=== PATIENT | male | born 1955 | race Two or more races ===

== ENCOUNTER → 2024-11-25 07:51 | Outpatient (REF) | payer MEDICARE, OTHER, SELFPAY | LOC: RAD 07:51 | PROVIDERS: ATTENDING PHYSICIAN Internal Medicine Hematology & Oncology; FAMILY PHYSICIAN Family Medicine | DX: C18.9 Malignant neoplasm of colon, unspecified (principal); C61 Malignant neoplasm of prostate; D50.8 Other iron deficiency anemias | CPT/HCPCS: 71260; 74177; Q9967 ==

== ENCOUNTER → 2024-11-27 12:43 | Outpatient (REF) | payer MEDICARE, OTHER, SELFPAY | LOC: LAB 12:43 | PROVIDERS: ATTENDING PHYSICIAN Surgery | DX: D50.9 Iron deficiency anemia, unspecified (principal); K21.00 Gastro-esophageal reflux disease with esophagitis, without bleeding; K22.89 Other specified disease of esophagus; D49.0 Neoplasm of unspecified behavior of digestive system; D12.8 Benign neoplasm of rectum; D12.2 Benign neoplasm of ascending colon; K64.1 Second degree hemorrhoids | CPT/HCPCS: 88305 ==

== ENCOUNTER 2024-12-10 11:01 | Inpatient (IN) | payer MEDICARE, OTHER, SELFPAY ==
[2024-12-07 11:23] VITALS: BMI 35.9
[2024-12-07 11:39] LABS: Hematocrit 34.4 % (39.0-52.0); Hemoglobin 11.4 g/dL (13.0-18.0); Mean Corp Hgb Conc. 33.1 g/dL (33.0-37.0); Mean Corpuscular Volume 86.0 fL (80.0-94.0); Platelet Count 228 10^3/uL (130-400); Red Cell Dist. Width 15.2 % (11.5-14.5)
[2024-12-07 11:54] LABS: INR 0.90; PT 12.4 Sec (11.4-14.6)
[2024-12-07 11:55] LABS: APTT 29.0 Sec (23.4-35.0)
[2024-12-07 11:56] LABS: Glycohemoglobin (HgbA1c) 5.0 % (4.0-5.6)
[2024-12-07 12:06] LABS: ALT (SGPT) 14 U/L (0-50); AST (SGOT) 18 U/L (17-59); Albumin 4.3 g/dl (3.5-5.0); Alkaline Phosphatase 78 U/L (38-126); Blood Urea Nitrogen 14 mg/dl (9-20); Calcium 9.1 mg/dl (8.4-10.2); Carbon Dioxide 24 mmol/L (22-30); Chloride 108 mmol/L (98-107); Estimated Creatinine Clearance 113 ml/min; Glucose 103 mg/dl (70-99); Potassium 4.1 mmol/L (3.5-5.1); Sodium 139 mmol/L (135-145); Total Protein 6.5 g/dl (6.3-8.2); eGFR > 60.00
[2024-12-07 19:37] LABS: CEA 6.08 ng/ml
[2024-12-10] VITALS (7 sets, daily range): BP systolic 123–144; BP diastolic 75–83; BMI 35.9; BMI 34.1
[2024-12-10] MEDS: NEURONTIN 600 MG PO (11:41)
[2024-12-10] MEDS: TYLENOL 1000 MG PO (11:41)
[2024-12-10] MEDS: RELISTOR 12 MG SC (11:42)
[2024-12-10] MEDS: NORMOSOL-R/PLASMALYTE-A 1000 IV ×2 (11:42→21:18)
[2024-12-10] MEDS: CELEBREX 200 MG PO (11:42)
--- NOTE | 2024-12-10 19:12 | W.OR.COLCA ---
Addendum entered and electronically signed by Bryce Burnham MD 12/10/24 21:16:
Correction: no obvious hepatic metastases.
Original Note:
Colon Cancer Post Op Note
Immediate Post Op
Primary Surgeon: Candido Burnham MD
Assisting Surgeon: AJIT Amaya, Mike Durham MD-[id number]
Pre-op Diagnosis: cecal cancer
Post-op Diagnosis: same
Procedure Performed: robotic right colectomy
Anesthesia Type: general plus local
Specimen / Cultures: right colon
Estimated Blood Loss: 100 cc
Complications: no immediate
Operative Findings: 1) cecal tumor with associated tattoo 2) no obvious cecal or peritoneal metastases
Colon Resection
Colon Resection
Operation performed with curative intent: Yes
Tumor Location: Cecum
Right Hemicolectomy: Ileocolic and Right Colic
[2024-12-10 20:14] LABS: Hematocrit 33.5 % (39.0-52.0); Hemoglobin 11.1 g/dL (13.0-18.0); Mean Corp Hgb Conc. 33.1 g/dL (33.0-37.0); Mean Corpuscular Volume 85.7 fL (80.0-94.0); Nucleated Red Blood Cells % 0 % (-); Platelet Count 204 10^3/uL (130-400); Red Cell Dist. Width 14.8 % (11.5-14.5)
[2024-12-10 20:32] LABS: Blood Urea Nitrogen 11 mg/dl (9-20); Calcium 8.5 mg/dl (8.4-10.2); Carbon Dioxide 27 mmol/L (22-30); Chloride 103 mmol/L (98-107); Estimated Creatinine Clearance > 125 ml/min; Glucose 161 mg/dl (70-99); Magnesium 2.2 mg/dl (1.6-2.3); Potassium 3.9 mmol/L (3.5-5.1); Sodium 135 mmol/L (135-145); eGFR > 60.00
--- NOTE | 2024-12-10 21:00 | PTCARENOTE ---
Pt arrived to floor @ 2100. AAO3. VSS on 4L NC. IVF initiated per order. Admission assessment completed. Pt oriented to room, call landrum within reach, bed locked and in lowest position. Reviewed plan of care with spouse at bedside. Care ongoing.
[2024-12-10] MEDS: TORADOL 10 MG IV (21:18)
[2024-12-10] MEDS: TYLENOL 650 MG PO ×2 (21:18→23:17)
[2024-12-10] MEDS: FLOMAX 0.4 MG PO (21:18)
[2024-12-11] VITALS (9 sets, daily range): BP systolic 131–174; BP diastolic 76–102; PULSE 63–64; O2SAT 93; BMI 34.0
[2024-12-11] MEDS: TORADOL 10 MG IV (01:53)
[2024-12-11] MEDS: TYLENOL 650 MG PO ×4 (03:12→20:08)
[2024-12-11 06:24] LABS: Hematocrit 33.8 % (39.0-52.0); Hemoglobin 11.1 g/dL (13.0-18.0); Mean Corp Hgb Conc. 32.8 g/dL (33.0-37.0); Mean Corpuscular Volume 85.1 fL (80.0-94.0); Nucleated Red Blood Cells % 0 % (-); Platelet Count 199 10^3/uL (130-400); Red Cell Dist. Width 14.8 % (11.5-14.5)
[2024-12-11 06:44] LABS: Blood Urea Nitrogen 10 mg/dl (9-20); Calcium 8.9 mg/dl (8.4-10.2); Carbon Dioxide 27 mmol/L (22-30); Chloride 104 mmol/L (98-107); Estimated Creatinine Clearance > 125 ml/min; Glucose 135 mg/dl (70-99); Magnesium 2.3 mg/dl (1.6-2.3); Potassium 4.1 mmol/L (3.5-5.1); Sodium 136 mmol/L (135-145); eGFR > 60.00
[2024-12-11] MEDS: FLOMAX 0.4 MG PO ×2 (08:49→20:07)
[2024-12-11] MEDS: DELTASONE 5 MG PO (08:49)
[2024-12-11] MEDS: PROTONIX 40 MG PO (08:49)
[2024-12-11] MEDS: TORADOL 15 MG IV ×3 (08:50→20:07)
[2024-12-11] MEDS: RELISTOR 12 MG SC (08:53)
[2024-12-11] MEDS: TORADOL IV (09:09)
--- NOTE | 2024-12-11 09:15 | CM ---
CM following re: discharge planning.
Reviewed pt's chart, met with pt.
Pt is a 69 year old male, admitted with primary dx of cecal cancer, POD#1 s/p robotic right colectomy.
Pt reports he lives with spouse in a 2SH, 2 steps to enter, has 2 supportive stepchildren. 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 No VN or SNF history. Pt expressed his desire to return back home with family
support.
PCP: Lisa Aponte
Pharmacy: [facility]
D/C plan: home with anticipated no needs. Spouse to transport at discharge.
CM will follow with discharge plan updates as needed.
[2024-12-11] MEDS: NORMOSOL-R/PLASMALYTE-A 1000 IV ×2 (09:59→21:23)
--- NOTE | 2024-12-11 10:16 | W.PN.CRS1 ---
Today's Communication / Plan
-
Clears with potential for advancement later.
DC Little.
Lovenox.
Out of bed.
Assessment/Plan
-
POD 1.
1. Vitals and labs reasonable.
2. DC Little.
3. Continue clears for now. Await bowel function.
4. Out of bed/PT.
5. Start Lovenox this evening.
Subjective Data
Procedure
Robotic right colectomy on 12/10/2024.
Subjective Data
Date of Service: December 11, 2024
Patient without complaints. Minimal discomfort. Taking some clears. Denies nausea vomiting. No bowel function.
Objective Data
-
Vital Signs
Temp Pulse Resp BP Pulse Ox
98.6 F 63 18 155/81 93
12/11/24 07:40 12/11/24 07:40 12/11/24 07:40 12/11/24 07:40 12/11/24 07:40
Intake & Output
12/10/24 12/11/24 12/12/24
06:59 06:59 06:59
Intake Total 960 / 960
Output Total 2150 / 2150 700 / 700
Balance -1190 / -1190 -700 / -700
Intake:
Oral fluids 960 / 960
Output:
Urine, Little 750 / 750 700 / 700
Urine, Voided 1400 / 1400
Lab Results
12/11/24 05:37
12/11/24 05:37
Physical Exam
-
General: No Acute Distress
Chest: Clear
Cardiovascular: Regular Rate & Rhythm
Abdomen: Non Distended and Tender (Mild incisional)
Extremities: No Edema and No Calf Tenderness
Incision: Clear, Dry, Intact and No Skin Erythema
[2024-12-11] MEDS: TYLENOL PO (12:00)
[2024-12-11] MEDS: FOLVITE 1 MG PO (18:21)
[2024-12-11] MEDS: LOVENOX 40 MG SC (18:22)
[2024-12-11] MEDS: NON-FORMULARY ITEM 1000 MG PO (21:11)
[2024-12-12] MEDS: TYLENOL PO ×2 (00:55→05:26)
[2024-12-12] MEDS: TORADOL 15 MG IV ×4 (01:57→20:46)
[2024-12-12 06:00] VITALS: BMI 33.8
[2024-12-12 06:21] LABS: Hematocrit 31.6 % (39.0-52.0); Hemoglobin 10.4 g/dL (13.0-18.0); Mean Corp Hgb Conc. 32.9 g/dL (33.0-37.0); Mean Corpuscular Volume 85.9 fL (80.0-94.0); Nucleated Red Blood Cells % 0 % (-); Platelet Count 187 10^3/uL (130-400); Red Cell Dist. Width 15.0 % (11.5-14.5)
[2024-12-12 06:46] LABS: Blood Urea Nitrogen 10 mg/dl (9-20); Calcium 9.0 mg/dl (8.4-10.2); Carbon Dioxide 27 mmol/L (22-30); Chloride 107 mmol/L (98-107); Estimated Creatinine Clearance > 125 ml/min; Glucose 96 mg/dl (70-99); Magnesium 2.3 mg/dl (1.6-2.3); Potassium 3.8 mmol/L (3.5-5.1); Sodium 139 mmol/L (135-145); eGFR > 60.00
[2024-12-12 07:26] VITALS: BP 161/95
[2024-12-12] MEDS: PROTONIX 40 MG PO (08:47)
[2024-12-12] MEDS: FLOMAX 0.4 MG PO ×2 (08:47→20:46)
[2024-12-12] MEDS: DELTASONE 5 MG PO (08:47)
[2024-12-12] MEDS: NORMOSOL-R/PLASMALYTE-A 1000 IV (08:47)
[2024-12-12] MEDS: RELISTOR 12 MG SC (08:48)
[2024-12-12] MEDS: TYLENOL 650 MG PO ×4 (08:48→20:46)
--- NOTE | 2024-12-12 12:05 | W.PN.GS2 ---
Today's Communication / Plan
-
-- Fulls, possible LRD for dinner
-- HLIV
-- Home meds
Assessment / Plan
-
Patient is a 69 yo M POD 1 s/p robotic RIGHT colectomy
AVSS
Labs notable for normal WBC, stable Hb, normal electrolytes and renal function
Recovering well. No major postoperative concerns.
-- Fulls, possible LRD for dinner
-- Pain control: Tylenol, Toradol, Tramadol
-- Home meds, continue with Prednisone 5 mg
-- HLIV
-- DVT: Lovenox
-- GI: PPI
-- OOB/ambulate
Subjective Data
-
Date of Service: December 12, 2024
No complaints. Pain well-controlled. No nausea or vomiting. Passing flatus, no BM. Ambulating. Voiding.
Objective Data
-
Intake and Output
12/11/24 12/12/24 12/13/24
06:59 06:59 06:59
Intake Total 960 / 960 1560 / 1560
Output Total 2150 / 2150 1450 / 1450
Balance -1190 / -1190 110 / 110
Intake:
Oral fluids 960 / 960 600 / 600
IV fluids (Total) 960 / 960
Output:
Urine, Cardoza 750 / 750 700 / 700
Urine, Voided 1400 / 1400 750 / 750
Other:
Number of approximated SMALL 1
amounts of urine
Number of approximated MODERATE 2
amounts of urine
Vital Signs
Temp Pulse Resp BP Pulse Ox
97.7 F 63 16 161/95 96
12/12/24 07:26 12/12/24 07:26 12/12/24 07:26 12/12/24 07:26 12/12/24 07:26
Lab Results
12/12/24 05:41
12/12/24 05:41
Calcium 9.0 mg/dl (8.4-10.2) 12/12/24 05:41
Magnesium 2.3 mg/dl (1.6-2.3) 12/12/24 05:41
Total Bilirubin 0.5 mg/dl (0.2-1.3) 12/07/24 10:07
AST 18 U/L (17-59) 12/07/24 10:07
ALT 14 U/L (0-50) 12/07/24 10:07
Alkaline Phosphatase 78 U/L (38-126) 12/07/24 10:07
Total Protein 6.5 g/dl (6.3-8.2) 12/07/24 10:07
Albumin 4.3 g/dl (3.5-5.0) 12/07/24 10:07
Physical Exam
-
Gen: NAD
Abd: soft, minimal tenderness, ND, non-peritoneal, incisions c/d/i - no erythema, ecchymosis or drainage
Patient has a cardoza catheter: No
Patient has a central line: No
[2024-12-12 15:15] VITALS: BP 167/97
[2024-12-12] MEDS: FOLVITE 1 MG PO (17:42)
[2024-12-12] MEDS: LOVENOX 40 MG SC (17:42)
[2024-12-12] MEDS: NON-FORMULARY ITEM 1000 MG PO (21:47)
[2024-12-12 23:00] VITALS: BP 141/78
[2024-12-13] MEDS: TYLENOL PO ×3 (01:05→11:49)
[2024-12-13] MEDS: TORADOL 15 MG IV ×2 (02:20→10:47)
[2024-12-13 06:00] VITALS: BMI 33.3
[2024-12-13] MEDS: TYLENOL 650 MG PO (10:46)
[2024-12-13] MEDS: DELTASONE 5 MG PO (10:47)
[2024-12-13] MEDS: PROTONIX 40 MG PO (10:47)
[2024-12-13] MEDS: FLOMAX 0.4 MG PO (10:47)
--- NOTE | 2024-12-13 10:47 | W.PN.GS2 ---
Today's Communication / Plan
-
-- LRD
-- Dispo pending, likely DC today
Assessment / Plan
-
Patient is a 69 yo M POD 2 s/p robotic RIGHT colectomy
AVSS
Labs notable for normal WBC, stable Hb, normal electrolytes and renal function
Recovering well. No major postoperative concerns.
-- LRD
-- Pain control: Tylenol, Toradol, Tramadol
-- Home meds, continue with Prednisone 5 mg
-- HLIV
-- DVT: Lovenox
-- GI: PPI
-- OOB/ambulate
-- Possible DC today
Subjective Data
-
Date of Service: December 13, 2024
No complaints. Passing flatus, no BM. Abdominal pain well-controlled.. No nausea or vomiting. Voiding. Ambulating.
Objective Data
-
Intake and Output
12/12/24 12/13/24 12/14/24
06:59 06:59 06:59
Intake Total 1560 / 1560 720 / 720
Output Total 1450 / 1450
Balance 110 / 110 720 / 720
Intake:
Oral fluids 600 / 600 720 / 720
IV fluids (Total) 960 / 960
Output:
Urine, Little 700 / 700
Urine, Voided 750 / 750
Other:
Number of approximated SMALL 1
amounts of urine
Number of approximated MODERATE 2 4
amounts of urine
Vital Signs
Temp Pulse Resp BP Pulse Ox
97.4 F 58 16 141/78 96
12/13/24 07:15 12/12/24 23:00 12/13/24 07:15 12/12/24 23:00 12/12/24 23:00
Lab Results
12/12/24 05:41
12/12/24 05:41
Calcium 9.0 mg/dl (8.4-10.2) 12/12/24 05:41
Magnesium 2.3 mg/dl (1.6-2.3) 12/12/24 05:41
Total Bilirubin 0.5 mg/dl (0.2-1.3) 12/07/24 10:07
AST 18 U/L (17-59) 12/07/24 10:07
ALT 14 U/L (0-50) 12/07/24 10:07
Alkaline Phosphatase 78 U/L (38-126) 12/07/24 10:07
Total Protein 6.5 g/dl (6.3-8.2) 12/07/24 10:07
Albumin 4.3 g/dl (3.5-5.0) 12/07/24 10:07
Physical Exam
-
Gen: NAD
Abd: soft, NT/ND, non-peritoneal, incisions c/d/i - no erythema, ecchymosis or drainage
Patient has a central line: No
[2024-12-13] MEDS: RELISTOR 12 MG SC (10:49)
[2024-12-13 11:00] VITALS: BP 143/86
--- NOTE | 2024-12-13 11:00 | W.DS.TRANS ---
Addendum entered and electronically signed by KY Smith 12/13/24 14:01:
dictated #[id number]
Original Note:
DC Summary - [employer]
-
Discharge Instructions:
Sleep Apnea Risk High
Discharge Diagnosis/Procedures robotic right colectomy
Diet Low Residue
Activity No strenuous activity
Additional Activity No lifting over 10lbs (gallon of milk)
Driving Restrictions No driving for 1 week
Bathing Restrictions OK to Shower
Wound Care Allow glue to naturally fall off. Do not pick at
incisions.
Instructions: Low-fiber diet
Stand-Alone Forms:
Changes to Home Medications: No
Discharge Medications:
DC Medications w/original date entered in [employer]
Immune Max Supplement 1 packet PO DAILY Supplement 12/04/24
Metamucil 2 tsp PO DAILY PRN constipation 12/04/24
Held on 12/12/24. Instructions: Resume on 11/20/25.
Stool Softener 1 softgel PO DAILY PRN constipation 12/04/24
Held on 12/12/24. Instructions: Resume on 12/18/24.
abiraterone 250 mg tablet (Zytiga) 1,000 mg PO HS Cancer 12/04/24
diphenhydramine 25 mg-acetaminophen 500 mg tablet (Tylenol PM Extra Strength) 1 tab PO HS PRN pain 12/04/24
folic acid 1 mg tablet 1 mg PO QPM Supplement 12/04/24
melatonin 10 mg disintegrating tablet 10 mg PO HS Supplement 12/04/24
prednisone 5 mg tablet 5 mg PO DAILY 12/04/24
tadalafil 5 mg tablet 5 mg PO QPM 12/04/24
tamsulosin 0.4 mg capsule 0.4 mg PO BID 12/04/24
apixaban 2.5 mg tablet 2.5 mg PO BID 1 month #60 tabs 12/12/24
tramadol 50 mg tablet 25 - 50 mg (0.5 - 1 x 50 mg) PO Q6HPRN PRN severe pain/breakthrough pain #10 tabs 12/13/24
Home Medication Changes
Pending Results: No
== END 2024-12-13 12:39 | disposition home or self-care (01) | DRG 331 ==
LOC: 2 SOUTH 11:01
PROVIDERS: ADMITTING PHYSICIAN Surgery; FAMILY PHYSICIAN Family Medicine
PROC: 0DTF4ZZ Resection of Right Large Intestine, Percutaneous Endoscopic Approach (ICD-10-PCS; 2024-12-10)
PROC: 8E0W4CZ Robotic Assisted Procedure of Trunk Region, Percutaneous Endoscopic Approach (ICD-10-PCS; 2024-12-10)
DX: C18.0 Malignant neoplasm of cecum (principal); Z87.19 Personal history of other diseases of the digestive system; Z92.3 Personal history of irradiation
CPT/HCPCS: 36415; 80048; 80053; 82378; 83036; 83735; 85025; 85027; 85610; 85730; 86850; 86900; 86901; 88309; 93005; 97162; J1335

== ENCOUNTER 2025-01-07 06:20 | Day surgery (SDC) | payer MEDICARE, OTHER, SELFPAY ==
[2025-01-07 12:03] VITALS: BMI 34.0
[2025-01-07 12:04] VITALS: BMI 34.0
[2025-01-07 12:05] VITALS: BP 148/89
[2025-01-07 13:57] VITALS: BP 111/66
[2025-01-07 14:00] VITALS: BP 101/66
[2025-01-07 14:15] VITALS: BP 118/78
[2025-01-07 14:30] VITALS: BP 131/83
== END 2025-01-07 14:55 | disposition home or self-care (01) ==
LOC: SDS 06:20
PROVIDERS: ATTENDING PHYSICIAN Surgery
DX: C18.0 Malignant neoplasm of cecum (principal)
CPT/HCPCS: 36561; 71045; 76000; C1788

== ENCOUNTER 2025-03-08 13:15 | Emergency (ER) | payer MEDICARE, OTHER, SELFPAY ==
[2025-03-08 13:17] VITALS: BP 128/102
[2025-03-08 13:18] VITALS: BP 128/102
[2025-03-08] MEDS: ADENOCARD 6 MG IV (13:24)
--- NOTE | 2025-03-08 13:28 | ED.GENMED ---
Addendum entered and electronically signed by Aquilino Espinal, 03/08/25 15:50:
note should read 70 yo male
Original Note:
History of Present Illness
General
Chief Complaint: Heart Rate Problem
Source: patient
Exam Limitations: none
Time Seen by Provider: 03/08/25 13:17
Nursing documentation reviewed up to this point in time: agreed with
History of Present Illness
History of Present Illness:
Note:
CHIEF COMPLAINT(S)
Palpitations suspected to be supraventricular tachycardia (SVT).
HISTORY OF PRESENT ILLNESS
The patient is a 41-year-old male with a history of colon cancer, currently on chemotherapy, presenting with suspected supraventricular tachycardia (SVT). The patient reports feeling similar symptoms 12 days ago, for which he received adenosine, and
describes the sensation as 'like a kick' but notes it did not bother him significantly at that time. Today, the patient experienced a rapid heart rate of approximately 190 beats per minute. There is no mention of prior radiation treatment for colon
cancer, but a history of completed radiation for prostate cancer two years ago is noted. Additionally, the patient has a history of treated skin cancer on the back. Todays goal is the termination of SVT.
PAST MEDICAL AND SURGICAL HISTORY
Colon cancer, currently undergoing chemotherapy.
History of prostate cancer, treated with radiation two years ago.
History of skin cancer on the back.
SOCIAL DETERMINANTS AFFECTING HEALTH
The patient is currently undergoing chemotherapy for colon cancer.
PHYSICAL EXAM
General: Alert, no acute distress.
Skin: Warm, dry.
Head: Normocephalic, atraumatic.
Neck: Supple, trachea midline.
Eye, Ears, Nose, Mouth, and Throat: Oral mucosa moist.
Cardiovascular: Normal peripheral perfusion, No edema. tachycardia
Respiratory: Respirations are non-labored.
Gastrointestinal: Abdomen nondistended.
Back: Normal range of motion, Normal alignment.
Musculoskeletal: Normal range of motion, normal strength.
Neurological: Alert and oriented to person, place, time, and situation, No focal neurological deficit observed.
Psychiatric: Cooperative, appropriate mood & affect.
PROBLEM LIST
Acute:
- Supraventricular tachycardia (SVT)
Chronic:
- Colon cancer
- Prostate cancer (treated)
- Skin cancer (treated)
PLAN
Administer adenosine for the termination of SVT, as previously experienced by the patient.
Discuss potential further management with the possibility of a planned electrophysiological study and ablation if episodes persist.
DIFFERENTIAL DIAGNOSIS
The Differential Diagnosis includes, in no particular order and is not limited to:
- Supraventricular tachycardia (SVT)
- Atrial flutter
- Atrial fibrillation
- Ventricular tachycardia
- Sinus tachycardia
- Hyperthyroidism
- Pheochromocytoma
- Anxiety disorder
- Panic disorder
- Electrolyte imbalance
EKG
My independent EKG interpretation is:
- Time of EK on 03/08/25
- Rhythm noted: Supraventricular tachycardia
- Heart rate: 168 bpm
- [place]: Left axis deviation
- Notable abnormalities: Non-specific abnormality noted
Disposition:
SUMMARY OF ENCOUNTER
The patient, a 41-year-old male with a history of colon cancer, presented to the emergency department with suspected supraventricular tachycardia (SVT). The patient experienced a rapid heart rate, estimated around 190 beats per minute. In the ED,
administration of 6 mg intravenous adenosine was successful in converting the patients SVT. The patient demonstrated stability post-treatment and was deemed in good condition for discharge. The leukocytosis noted was attributed to recent
administration of pegfilgrastim (Neulasta).
DISPOSITION
Discharge.
ASSESSMENT
The patient presented with supraventricular tachycardia and was successfully treated with adenosine. He has an underlying chronic condition of colon cancer, which currently contributes to his health management, in addition to the past occurrence of
prostate and skin cancers.
EMERGENCY TREATMENTS ADMINISTERED
6 mg intravenous adenosine was administered to convert SVT.
PLAN
The patient is recommended to follow up with his funeral home attendant, primary care provider, and oncologist.
INDEPENDENT REVIEW OF LABS AND INTERPRETATION OF TESTS
My independent review of the EKG confirmed supraventricular tachycardia.
PATIENT EDUCATION AND COUNSELING
The patient was advised on the nature of supraventricular tachycardia and its management, including recognition of symptoms and steps to take if episodes recur.
FOLLOW-UP INSTRUCTIONS
Please follow up with your funeral home attendant, primary care physician, and oncologist for ongoing management and evaluation.
MEDICAL DECISION MAKING
- Number and Complexity of Problems Addressed:
Chronic conditions affecting care: Colon cancer, Prostate cancer (treated), Skin cancer (treated). Differential diagnosis includes supraventricular tachycardia (SVT), Atrial flutter, Atrial fibrillation, Ventricular tachycardia, Sinus tachycardia,
Hyperthyroidism, Pheochromocytoma, Anxiety disorder, Panic disorder, and Electrolyte imbalance.
- Data:
Category 1
Clinical records and history regarding the patients chemotherapy and associated leukocytosis secondary to pegfilgrastim (Neulasta) were reviewed.
Category 2
My independent interpretation of the EKG confirmed supraventricular tachycardia.
- Risk:
Consideration of observation for SVT management was evaluated. After successful conversion with adenosine and stabilization, the patient is considered safe for outpatient management with recommended follow-up.
DIAGNOSIS
Supraventricular tachycardia (I47.1)
Leukocytosis secondary to pegfilgrastim administration (D72.829)
Phy Exam
Physical Exam
Physical Exam:
.
Course
Orders/Labs/Results
Orders:
Orders
03/08/25 13:17
Electrocardiogram (*1) Urgent
Reason for Study: Abdominal Pain
EKG- Treatment ONCE
03/08/25 13:22
Adenosine [Adenocard] 18 mg .ROUTE .STK-MED ONE
03/08/25 13:25
Adenosine [Adenocard] 6 mg IV NOW STA
03/08/25 13:27
Complete Blood Count/With Diff Urgent
Comprehensive Metabolic Panel Urgent
03/08/25 13:29
Electrocardiogram (*1) Urgent
Reason for Study: Chest Pain
EKG- Treatment ONCE
Abnormal Lab Results
03/08/25
13:27
WBC 35.8 H 10^3/uL
(4.8-10.8)
RBC 4.50 L 10^6/uL
(4.70-6.10)
Hgb 12.7 L g/dL
(13.0-18.0)
Hct 37.9 L %
(39.0-52.0)
RDW 18.5 H %
(11.5-14.5)
Creatinine 0.6 L mg/dL
(0.7-1.3)
Glucose 113 H mg/dl
(70-99)
Alkaline Phosphatase 174 H U/L
(38-126)
03/08/25 13:27
03/08/25 13:27
Vital Signs
Initial and Last Documented VS:
Initial Vital Signs
BP
128/102
03/08/25 13:17
Last Documented Vital Signs
Pulse Resp BP Pulse Ox
77 18 135/97 95
03/08/25 14:00 03/08/25 14:00 03/08/25 14:00 03/08/25 14:00
*Pulse Oximetry
SaO2: 95
Oxygen Mode of Delivery: Room air
Patient hypoxic: no
*Critical Care Note
Total Time (30-74mins, 75-104mins- exclusive of procedures): 30 (Critical care statement: A total of 30 minutes of critical care time was provided for this patient. This includes management of unstable vital signs, evaluation of the patient at
bedside, reviewing the patient's pertinent medical records, discussion with consultants, review of old EKGs and review of)
ED Attending Note
-
Portions of this chart may have been created with voice recognition software.� Occasional wrong word or��sound alike� substitutions may have occurred due to the inherent limitations of voice recognition software.
Discharge Plan
Departure
Patient Disposition: Home (Routine Discharge)
Date of Disposition: 03/08/25
Time of Disposition: 15:02
Patient with high blood pressure during this ER visit?: Yes
Condition: Good
Discharge Problem:
SVT (supraventricular tachycardia)
Instructions: Supraventricular tachycardia (SVT), BLOOD PRESSURE
Prescriptions:
No Action
tamsulosin 0.4 mg Capsule
0.4 mg PO BID
folic acid 1 mg Tablet
1 mg PO QPM
diphenhydramine-acetaminophen [Tylenol PM Extra Strength] 25-500 mg Tablet
1 tab PO HS PRN (Reason: pain)
tadalafil 5 mg Tablet
5 mg PO QPM
melatonin 10 mg Tablet,Disintegrating
10 mg PO HS
Immune Max Supplement
1 packet PO DAILY
apixaban 2.5 mg tablet
2.5 mg PO BID 30 Days Qty: 60 0RF
Miralax
1 unit PO PRN PRN (Reason: constipation)
Zantac 150 mg Capsule
150 mg PO PRN PRN (Reason: GERD)
Referrals:
Fabiola Shook MD [Active, Cardiology] - Call in 1-3 days for appt
Interventions
Interventions:
*Risk Screen - Suicide Last Done: 03/08/25 13:18
*General Assessment Last Done: 03/08/25 13:18
*Neglect/Abuse Screening Last Done: 03/08/25 13:18
*ED COVID-19 Vaccine History Last Done: 03/08/25 14:00
*ED Influenza Vaccine History Last Done: 03/08/25 14:00
ED- Cardiac Assessment Last Done: 03/08/25 13:20
ED- Pulmonary Assessment Last Done: 03/08/25 13:20
Discharge Date and Time
Print Language: SWAZI
[2025-03-08 13:51] LABS: ALT (SGPT) 47 U/L (0-50); AST (SGOT) 48 U/L (17-59); Albumin 4.5 g/dl (3.5-5.0); Alkaline Phosphatase 174 U/L (38-126); Blood Urea Nitrogen 11 mg/dl (9-20); Calcium 9.2 mg/dl (8.4-10.2); Carbon Dioxide 25 mmol/L (22-30); Chloride 104 mmol/L (98-107); Glucose 113 mg/dl (70-99); Potassium 3.9 mmol/L (3.5-5.1); Sodium 136 mmol/L (135-145); Total Protein 7.2 g/dl (6.3-8.2); eGFR > 60.00
[2025-03-08 14:00] VITALS: BP 135/97
[2025-03-08 14:00] LABS: Hematocrit 37.9 % (39.0-52.0); Hemoglobin 12.7 g/dL (13.0-18.0); Mean Corp Hgb Conc. 33.5 g/dL (33.0-37.0); Mean Corpuscular Volume 84.2 fL (80.0-94.0); Red Cell Dist. Width 18.5 % (11.5-14.5)
[2025-03-08 15:39] LABS: Platelet Count 97 10^3/uL (130-400)
[2025-03-08 15:41] LABS: Nucleated Red Blood Cells % 0 % (-)
== END 2025-03-08 15:28 | disposition home or self-care (01) ==
LOC: EMR 13:15
PROVIDERS: EMERGENCY PHYSICIAN Emergency Medicine; FAMILY PHYSICIAN Family Medicine
DX: I47.10 Supraventricular tachycardia, unspecified (principal); C18.9 Malignant neoplasm of colon, unspecified; Z85.46 Personal history of malignant neoplasm of prostate; Z85.828 Personal history of other malignant neoplasm of skin; Z92.3 Personal history of irradiation; Z79.60 Long term (current) use of unspecified immunomodulators and immunosuppressants
CPT/HCPCS: 99284; 96374; 80053; 85025; 93005; J0153